=== PATIENT | male | born 1955 | race Caucasian/White ===

== ENCOUNTER 2016-12-06 05:57 | Emergency (ER) | payer OTHER ==
[2016-12-06 06:13] VITALS: BP 137/72; PULSE 60; RESP 16; TEMP 97.9; O2SAT 98
[2016-12-06] MEDS ORDERED: CEPHALEXIN 500 MG CAP PO ONE (06:52)
--- NOTE | 2016-12-06 06:54 | EDPHY ---
H & P Stated Complaint: R calf swelling/bruising/pain; recent R hamstring tear Time Seen by Provider: 12/06/16 06:37 HPI/ROS: HPI The patient presents with right leg pain, redness and swelling for the last several days. Three weeks ago he injured his hamstring after a fall. He is currently going to physical therapy and has had a lot of bruising and swelling of his leg. However, over the last few days most of his pain is centered in his right calf, the pain is aching and throbbing and worse with ambulation. It is improved with rest. He has not had any fevers or chills, nausea or vomiting. He has no prior history of cellulitis or DVT.. REVIEW OF SYSTEMS Constitutional: No fever, no chills. Eyes: No discharge. ENT: No sore throat. Cardiovascular: No chest pain, no palpitations. Respiratory: No cough, no shortness of breath. Gastrointestinal: No abdominal pain, no vomiting. Genitourinary: No hematuria. Musculoskeletal: No back pain. Skin: No rashes. Neurological: No headache. PMHx: CAD with stents in place, takes a baby aspirin, history of right Achilles tendon rupture with repair Soc Hx: Housed PHYSICAL General Appearance: Alert, no distress Eyes: Pupils equal and round no pallor or injection ENT, Mouth: Mucous membranes moist Respiratory: Breathing comfortably Neurological: A&O, moves all extremities Skin: Warm and dry, no rashes Musculoskeletal: Neck is supple non tender Extremities: Right lower extremity with area of erythema, warmth, tenderness of anterior lainez, extending medially, ecchymoses throughout medial right calf, no edema is present Psychiatric: Patient is oriented X 3, there is no agitation Source: Patient Exam Limitations: No limitations - Personal History Current Tetanus/Diphtheria Vaccine: Unsure Current Tetanus Diphtheria and Acellular Pertussis (TDAP): Unsure Tetanus Vaccine Date: unsure - Medical/Surgical History Hx Asthma: No Hx Chronic Respiratory Disease: No Hx Diabetes: No Hx Cardiac Disease: No Hx Renal Disease: No Hx Cirrhosis: No Hx Alcoholism: No Hx HIV/AIDS: No Hx Splenectomy or Spleen Trauma: No Other PMH: cardiac stent x3 - Social History Smoking Status: Never smoked Constitutional: Initial Vital Signs Temperature (C) 36.6 C 12/06/16 06:08 Heart Rate 60 12/06/16 06:08 Respiratory Rate 16 12/06/16 06:08 Blood Pressure 137/72 H 12/06/16 06:08 O2 Sat (%) 98 12/06/16 06:08 O2 Delivery Mode Room Air Allergies/Adverse Reactions: No Known Allergies Allergy (Verified 12/06/16 06:14) Home Medications: Medication Instructions Recorded Amlodipine Besylate 12/06/16 Carvedilol 12/06/16 Cephalexin [Keflex (*)] 500 mg PO Q6H #28 cap 12/06/16 Losartan Potassium 12/06/16 Medical Decision Making Procedures: Bedside DVT Ultrasound, 2 point testing in popliteal fossa and inguinal region- performed and interpreted by me. Indication: Right leg pain Findings: Compressible common femoral vein to bifurcation, compressible popliteal vein with no obvious clot Impression: Low suspicion for significant DVT Differential Diagnosis: This is a 61-year-old male with history of CAD and recent hamstring injury who presents with right leg pain, swelling, erythema. Differential diagnosis includes cellulitis, DVT, less likely stasis dermatitis. In the emergency room, bedside ultrasound was performed by me, DVT study was negative. I feel it is unlikely he has a DVT and feel that cellulitis is more likely. We will treat him with Keflex for this. We have marked the area of redness with a pen. I have discussed return precautions with and he will be discharged from the emergency room in good condition. Departure - Departure Disposition: Home, Routine, Self-Care Clinical Impression: Cellulitis Qualifiers: Site of cellulitis: extremity Site of cellulitis of extremity: lower extremity Laterality: right Qualified Code(s): L03.115 - Cellulitis of right lower limb Condition: Good Instructions: Cellulitis (ED) Additional Instructions: Please return if the redness spreads were reviewed develops fever, vomiting, or feeling worse in any way. Prescriptions: Cephalexin [Keflex (*)] 500 mg PO Q6H #28 cap
== END 2016-12-06 07:08 | disposition home or self-care (01) ==
DX: L03.115 Cellulitis of right lower limb (principal); I25.10 Atherosclerotic heart disease of native coronary artery without angina pectoris; Z95.5 Presence of coronary angioplasty implant and graft

== ENCOUNTER 2017-10-20 07:51 | Emergency (ER) | payer OTHER ==
--- NOTE | 2017-10-20 08:35 | EDPHY ---
H & P Time Seen by Provider: 10/20/17 08:31 HPI/ROS: Chief complaint. Facial swelling HPI. 8-year-old male presents emergency department with complaint of hives all over beginning 3 days ago. Now they seem to be coming and going somewhat. Today lips and around his eyes or swelling. Sense of tongue swelling.No shortness of breath. He is been using Benadryl through the weekend. He has had a recent upper respiratory infection but denies using any [id number] medications. He has been on the same medications for hypertension and cholesterol since 2010 without change. He denies new medications, cleansers, detergents, foods. The rash is itchy. No chest pain or shortness of breath ROS Constitutional. no fever/chills, no weakness Eyes. no problems with vision ENT. Facial and tongue swelling Cardiovascular. no chest pain Respiratory. no shortness of breath, no cough Abdominal. no abdominal pain, no nausea/vomiting, no diarrhea . no problems urinating MS. no calf pain/swelling, no neck/back pain, no joint pain Skin. Hives Lymph. no swollen glands Neuro. no headache, no dizziness, no difficulty walking or with speech Past Medical/Surgical History: Past medical history significant coronary artery disease with stents, hypertension, dyslipidemia Social History: , nonsmoker, no alcohol Smoking Status: Never smoked Physical Exam: General Appearance: Alert well-developed male mild distress vital signs stable Eyes: Pupils equal and round no pallor or injection. ENT, tongue is maybe slightly swollen. Lips mildly swollen. Mild periorbital edema. Pharynx without swelling. He swallowing secretions. No stridor Respiratory: There are no retractions, lungs are clear to auscultation. Cardiovascular: Regular rate and rhythm. Gastrointestinal: Abdomen is soft and nontender, no masses, bowel sounds normal. Neurological: Awake and alert, sensory and motor exams grossly normal. Skin: Maculopapular hive type rash Musculoskeletal: Neck is supple nontender. Extremities symmetrical, full range of motion. Psychiatric: Patient is oriented X 3, there is no agitation. Constitutional: Initial Vital Signs Temperature (C) 36.9 C 10/20/17 07:54 Heart Rate 63 10/20/17 07:54 Respiratory Rate 20 10/20/17 07:54 Blood Pressure 146/134 H 10/20/17 07:54 O2 Sat (%) 96 10/20/17 07:54 O2 Delivery Mode Room Air Allergies/Adverse Reactions: No Known Allergies Allergy (Verified 10/20/17 07:54) Home Medications: Medication Instructions Recorded Amlodipine Besylate 12/06/16 Carvedilol 12/06/16 Losartan Potassium 12/06/16 Crestor 10/20/17 predniSONE 40 mg PO DAILY #8 tablet 10/20/17 Medical Decision Making Procedures: Pepcid, prednisone orally ED Course/Re-evaluation: Re-evaluation 9:45 a.m.. Patient is stable and improving. His symptoms are not worsening. He speaking full sentences. No stridor. The patient and his and I discussed treatment plan including criteria for return importance of follow-up and further evaluation. We discussed stopping his losartan. They expressed understanding agreement I consulted discussed case with Dr. Sameer Tiwari from Cardiology who does recommend stopping the losartan and seen the patient in the office for re- evaluation medication Differential Diagnosis: Allergic reaction possibly secondary to his chronic medication and possibly especially secondary to the losartan which is an angiotensin receptor franco. It is not an BJ-inhibitor but may be causing his symptoms. Otherwise there is no history of new cleansers, detergents, foods, clothing, [id number] medications. - Data Points Medications Given: Discontinued Medications Famotidine (Pepcid) 40 mg PO EDNOW ONE Stop: 10/20/17 08:47 Last Admin: 10/20/17 08:49 Dose: 40 mg Prednisone (Prednisone) 60 mg PO EDNOW ONE Stop: 10/20/17 08:47 Last Admin: 10/20/17 08:49 Dose: 60 mg Departure - Departure Disposition: Home, Routine, Self-Care Clinical Impression: Allergic reaction Qualifiers: Encounter type: initial encounter Qualified Code(s): T78.40XA - Allergy, unspecified, initial encounter Condition: Good Instructions: Urticaria (ED) Additional Instructions: Discontinue losartan for now as this may be a possible cause of your allergic reaction. Prednisone daily beginning tomorrow. You were given the 1st dose in the emergency department today Call and make an appointment with Dr. Pizano to discuss medication. Return for worsening symptoms including trouble swallowing, speaking, breathing Referrals: NONE *PRIMARY CARE P,. [Primary Care Provider] - As per Instructions Armaan Pizano MD [Medical Doctor] - 2-3 days, call for appt. Prescriptions: predniSONE 40 mg PO DAILY #8 tablet
[2017-10-20] MEDS ORDERED: FAMOTIDINE 20 MG TAB PO ONE (08:46)
[2017-10-20] MEDS ORDERED: predniSONE 20 MG TAB PO ONE (08:46)
[2017-10-20 09:09] VITALS: BP 112/69
== END 2017-10-20 10:14 | disposition home or self-care (01) ==
DX: R21 Rash and other nonspecific skin eruption (principal); T46.5X5A Adverse effect of other antihypertensive drugs, initial encounter; I10 Essential (primary) hypertension; I25.10 Atherosclerotic heart disease of native coronary artery without angina pectoris; Z95.5 Presence of coronary angioplasty implant and graft
CPT/HCPCS: J7512